=== PATIENT | female | born 1945 | race Caucasian/White ===

== ENCOUNTER 2017-05-30 00:41 | Emergency (ER) | payer OTHER ==
[~2017-05-30] VITALS: Ht 177.8 cm; Wt 118.2 kg
[~2017-05-30 00:41] MED LIST: ACET-2605 PO; CHOL5000 PO; FISH1CAP16 PO; LOSA50TA37 PO; METF1000 PO; METH20TA33 PO; NPH,100V11 SUBQ; OMEG1CAP25 PO
[2017-05-30 00:50] VITALS: BP 154/72; PULSE 77; RESP 18; O2SAT 96
--- NOTE | 2017-05-30 01:16 | ED.REPORT ---
HPI-Extremity Problem Lower Date of Service May 30, 2017 ED Provider: Dr. Griffin Pt is a 71 year old female with a hx of low platelet counts presenting to the ED complaining of right leg bleeding onset just prior to arrival. Associated symptoms include intermittent hematuria. Denies vomiting blood, black stool, dysuria, frequent urination, or any other symptoms at this time. She accidentally scratched her leg as she was taking off her sock, and the leg began spurting blood in a continuous stream. She was recently treated for varicose veins in her right leg. Not on blood thinners. Her latest [place] count was 82990 5 weeks ago. She is scheduled for a bone marrow test next week. Nursing Notes Stated Complaint: RT LEG LACERATION Chief Complaint: Laceration Nursing Notes Reviewed: Yes Allergies: Coded Allergies: Penicillins (Verified Allergy, Severe, throat swelling/rash, 01/05/17) metoclopramide (Verified Allergy, Severe, throat swells/tongue spasms, ) niacin (Verified Allergy, Severe, body rash/flushed, 01/05/17) Attldlu-Tbj-Elg Reductase Inhibitor (Verified Adverse Reaction, Severe, intolerance/depression, 01/05/17) lisinopril (Verified Adverse Reaction, Severe, dry cough, 01/05/17) Scheduled Cholecalciferol (Vitamin D3) (Vitamin D3) 5,000 Unit Capsule 5,000 UNIT PO DAILY Losartan Potassium (Losartan Potassium) 50 Mg Tablet 50 MG PO DAILY Metformin (Glucophage) 1,000 Mg Tablet 1,000 MG PO BID Methylphenidate (Methylphenidate) 20 Mg Tablet 20 MG PO BID NPH, Human Insulin Isophane (HUMulin-N U100 Insulin Vial) 100 Unit/1 Ml Vial 45 UNIT SUBQ BID [place]-3 Fatty Acids/Fish Oil ([place] 3 Fish Oil Softgel) 1 Each Capsule.dr 1 EACH PO BID Scheduled PRN Acetaminophen/Diphenhydramine (Tylenol Pm Ex-Strength Caplet) 500 Mg-25 Mg Tablet 1 EACH PO DIRECTED PRN PRN For Pain Miscellaneous Medications Fish Oil/Borage/Flax/Om3,6,9#1 ([place] 3-6-9 Complex Softgel) 400 Mg Capsule 400 MG PO General Time Seen by MD: 01:16 Chief Complaint Leg injury right Hx Obtained From: Patient Arrived By: Walk-in Onset Occurred: Just prior to arrival Symptom Duration: Since onset Severity: Current: No pain currently Severity: Maximum: No pain Recent Healthcare: No recent doctor visit, No recent hospitalization, Previous surgery Similar Sx Previous: No Past Medical History Past Medical History Low platelet count Past Surgical History Varicose vein surgery Smoking History Former Smoker Ambulatory Status Independent Review of Systems Review of Systems Note: Right leg bleeding Complete sys rev & neg: except as marked. GI: Denies: Bloody/tarry stool, Hematemesis, Vomiting Female: Reports: Hematuria, Denies: Dysuria, Urinary frequency Physical Exam Initial Vital Signs Vital Signs (First) Date Time Temp Pulse Resp B/P Pulse Ox O2 Delivery O2 Flow Rate FiO2 05/30/17 00:50 36.4 77 18 154/72 96 Room Air Initial VS: Reviewed General/Constitutional: Well-developed, Well-nourished Head / Eyes: Atraumatic, Normocephalic, PERRL ENT: Mucous membranes moist, Conjunctiva normal, No scleral icterus Neck: Supple, Non-tender, Full range of motion Respiratory: Breath sounds normal, Clear to auscultation, No respiratory distress Cardiovascular: Regular rate & rhythm, Heart sounds normal, Intact distal pulses Abdomen / GI: Soft, Non-tender, No guarding, No rebound, No distention Upper Extremities: Vascular intact, Neuro intact, No swelling, No tenderness Skin: Warm, Dry, No cyanosis Neurologic: Alert, Oriented, Nonfocal Psychiatric: Mood/affect normal, Behavior normal, Normal thought content Lower Extremity / Pelvis / MS: No deformity, Neurologic intact, Vascular intact Chronic venostasis changes bilaterally. Dried blood right leg. Just above medial malleolus there is a tiny punctate lesion with clot not presently bleeding. Interpretation & Diagnostics Lab Results Interpretation Result Diagram: 05/30/17 0147 Test 05/30/17 01:47 White Blood Count 5.3th/mm3 (3.8-10.1) Red Blood Count 4.43mil/mm3 (3.90-5.20) Hemoglobin 13.4g/dL (12.0-15.6) Hematocrit 40.3% (35.0-46.0) Mean Corpuscular Volume 91.0fL (81-100) Mean Corpuscular Hemoglobin 30.2pg (27.0-35.0) Mean Corpuscular Hemoglobin Concent 33.3% (32.0-37.0) Red Cell Distribution Width 12.4% (12.3-15.4) Platelet Count 94bil/L (150-400) Neutrophils (%) (Auto) 52.0% (40-74) Lymphocytes (%) (Auto) 29.7% (14-46) Monocytes (%) (Auto) 9.7% (4-12) Eosinophils (%) (Auto) 7.8% (0-5) Basophils (%) (Auto) 0.6% (0-3) Hold Domingo Top Tube Received (Received) Re-Eval/Medical Decision Re-Evaluation/Progress : Time of Eval: 02:13 Patient Status: Condition improved Re-Evaluation/Progress Note: Discussed plan for discharge. Pt understands and agrees with plan. Counseled Regarding: Diagnosis, Lab results, Need for follow-up, When/why to return to ED Discharge & Departure Impression: Primary Impression: Laceration Disposition: Home Discharge Condition All VS Reviewed: Yes Condition: Improved Patient Instructions: Laceration (ED) Additional Instructions: Your emergency room visit today included interview, examination and labs. [place] 41220 which is adequate. Keep the wound covered, if you have more bleeding, hold pressure for 10 minutes. Return to the ER if you have any worsened bleeding. Referrals: Salomón Rubi MD (PCP) Sheryliblenny Attestation Portions of this note were transcribed by Ramonita Urban. I, Dr. Griffin personally performed the history, physical exam and medical decision-making; I reviewed and confirmed the accuracy of the information in the transcribed note. Signed by : Jacqueline Hidalgo, 05/30/2017. copies to: Salomón Rubi MD, Donald L MD May 30, 2017 01:16 RAMONITA URBAN May 30, 2017 01:26 RAMONITA URBAN May 30, 2017 01:26
[2017-05-30 01:50] LABS: BASOPHILS % (AUTO) 0.6 % (0-3); EOSINOPHILS % (AUTO) 7.8 % (0-5); MONOCYTES % (AUTO) 9.7 % (4-12); Mean Corpuscular Hemoglobin 30.2 pg (27.0-35.0); Platelet Count 94 bil/L (150-400)
[2017-05-30 02:38] VITALS: BP 161/69; PULSE 73; RESP 20; O2SAT 97
[2017-06-04] MEDS ORDERED: chlorella PO (09:17)
== END 2017-05-30 02:39 | disposition home or self-care (01) ==
LOC: SED 01:30
DX: S81.811A Laceration without foreign body, right lower leg, initial encounter (principal); D69.6 Thrombocytopenia, unspecified; X58.XXXA Exposure to other specified factors, initial encounter; Y92.9 Unspecified place or not applicable; Y93.89 Activity, other specified; Y99.8 Other external cause status; E11.9 Type 2 diabetes mellitus without complications; Z87.891 Personal history of nicotine dependence; Z79.4 Long term (current) use of insulin; Z79.84 Long term (current) use of oral hypoglycemic drugs; Z88.0 Allergy status to penicillin; Z88.8 Allergy status to other drugs, medicaments and biological substances